=== PATIENT | male | born 1930 | race Caucasian/White ===

== ENCOUNTER 2019-01-05 07:05 | Inpatient (IN) ==
[2019-01-05 08:01] LABS: Basophils % 0.4 % (0.0-0.8); Eosinophils # 0.3 10*3/uL (0.0-0.87); Eosinophils % 4.4 % (0.00-10.9); Hemoglobin 11.1 GM/DL (14.0-18.0); Immature Granulocytes % 0.6 %; Immature Granulocytes Absolute 0.04 #; Lymphocytes # 1.1 10*3/uL (1.4-4.0); Lymphocytes % 16.2 % (21.2-54.2); Mean Corpuscular HGB Conc 31.7 GM/DL (32-36); Mean Corpuscular Volume 94.1 FL (87-102); Mean Platelet Volume 10.1 FL (9.6-12.0); Monocytes % 10.1 % (1.7-12.7); Neutrophils % 68.3 % (38.7-73.9); Platelet Count 203 T/CUMM (130-400); Red Blood Count 3.72 MC/CUMM (3.8-5.5); Red Cell Distribution Width 13.3 % (9.3-17.3); White Blood Count 6.9 T/CUMM (4-12)
[2019-01-05 08:39] LABS: Albumin 3.3 G/DL (3.4-5.0); Bilirubin,Total 0.9 MG/DL (0.2-1.0); Calcium 8.6 MG/DL (8.5-10.1); Osmolality,Calculated 275.7 MOS/KG (273-304); Thyroid Stimulating Hormone 6.84 uIU/ml (0.358-3.74); Total Protein 7.2 G/DL (6.4-8.3)
[2019-01-05] MEDS ORDERED: cefTRIAXone 1,000 MG in SODIUM CHLORIDE 0.9% 100 ML IV STA (10:01)
[2019-01-05] MEDS ORDERED: FUROSEMIDE 40 MG/4 ML VIAL IV STA (10:02)
[2019-01-05] MEDS ORDERED: ONDANSETRON 4 MG/2 ML VIAL ONE (10:39)
[2019-01-05] MEDS ORDERED: ONDANSETRON 4 MG/2 ML VIAL IV STA (10:43)
[2019-01-05] MEDS ORDERED: ONDANSETRON 4 MG/2 ML VIAL IV PRN (10:46)
[2019-01-05 10:54] LABS: Apearance,Urine CLEAR (Clear); Bacteria,Urine Occasional /HPF (Few); Bilirubin,Urine Negative (Negative); Blood, Urine Small mg/dL (Negative); Glucose,Urine (UA) Negative (Negative); Ketones,Urine Negative (Negative); Mucus,Urine Occasional /LPF (Occasional); Nitrite,Urine Negative (Negative); Protein,Urine Negative; RBC,Urine 11 /HPF (0-4); Squamous Epithelial Cell,Urine Occasional /HPF (0-10); Urine Color Yellow (Yellow); Urine Specific Gravity 1.011 (1.001-1.035); Urine Urobilinogen < 2.0 EU/DL (0.2-1.0); WBC,Urine 1 /HPF (0-6)
[2019-01-05 11:24] LABS: Free T4 (Free Thyroxine) 0.84 NG/DL (0.76-1.46)
[2019-01-05 11:31] LABS: Risk Ratio 2.68; VLDL CHOLESTEROL 17.6 MG/DL
[2019-01-05] MEDS ORDERED: CLOPIDOGREL 75 MG TABLET PO SCH (21:00)
[2019-01-05] MEDS: METOPROLOL TARTRATE 50 MG TABLET PO SCH (21:11)
[2019-01-05] MEDS: DOXYCYCLINE HYCLATE 100 MG CAPSULE PO SCH (21:11)
[2019-01-05] MEDS: SIMVASTATIN 40 MG TABLET PO SCH (21:11)
[2019-01-06 05:39] LABS: Basophils % 0.3 % (0.0-0.8); Eosinophils # 0.4 10*3/uL (0.0-0.87); Eosinophils % 5.2 % (0.00-10.9); Hemoglobin 12.4 GM/DL (14.0-18.0); Immature Granulocytes % 0.6 %; Immature Granulocytes Absolute 0.04 #; Lymphocytes % 15.3 % (21.2-54.2); Mean Corpuscular HGB Conc 31.8 GM/DL (32-36); Mean Platelet Volume 10.2 FL (9.6-12.0); Monocytes % 12.4 % (1.7-12.7); Neutrophils % 66.2 % (38.7-73.9); Platelet Count 203 T/CUMM (130-400); Red Blood Count 4.15 MC/CUMM (3.8-5.5); Red Cell Distribution Width 13.1 % (9.3-17.3); White Blood Count 6.8 T/CUMM (4-12)
[2019-01-06 05:57] LABS: Calcium 9.1 MG/DL (8.5-10.1); Osmolality,Calculated 273.8 MOS/KG (273-304)
[2019-01-06] MEDS ORDERED: LEVOTHYROXINE 50 MCG TABLET PO SCH (06:30)
[2019-01-06] MEDS ORDERED: lisinopriL 20 MG TABLET PO SCH (09:00)
[2019-01-06] MEDS: ASPIRIN EC 81 MG TABLET PO SCH (09:22)
[2019-01-06] MEDS: MEMANTINE 10 MG TABLET PO SCH (09:22)
[2019-01-06] MEDS: RIVAROXABAN 15 MG TABLET PO SCH (09:22)
[2019-01-06] MEDS: LEVOTHYROXINE 75 MCG TABLET PO SCH (09:22)
[2019-01-06] MEDS: PANTOPRAZOLE 40 MG TABLET PO SCH (09:22)
[2019-01-06] MEDS: CYANOCOBALAMIN 500 MCG TABLET PO SCH (09:22)
[2019-01-06] MEDS: METOPROLOL TARTRATE 50 MG TABLET PO SCH ×2 (09:22→20:58)
[2019-01-06] MEDS: DOXYCYCLINE HYCLATE 100 MG CAPSULE PO SCH ×2 (13:58→20:57)
[2019-01-06] MEDS: SIMVASTATIN 40 MG TABLET PO SCH (20:58)
[2019-01-06] MEDS: DOCUSATE SODIUM 100 MG CAPSULE PO PRN (22:12)
[2019-01-06] MEDS: ACETAMINOPHEN 325 MG TABLET PO PRN (22:12)
[2019-01-07 03:09] LABS: Basophils % 0.5 % (0.0-0.8); Eosinophils # 0.4 10*3/uL (0.0-0.87); Eosinophils % 7.3 % (0.00-10.9); Hematocrit 37.5 VOL% (42.0-52.0); Hemoglobin 11.9 GM/DL (14.0-18.0); Immature Granulocytes % 0.4 %; Immature Granulocytes Absolute 0.02 #; Lymphocytes # 1.2 10*3/uL (1.4-4.0); Lymphocytes % 22.7 % (21.2-54.2); Mean Corpuscular HGB Conc 31.7 GM/DL (32-36); Mean Corpuscular Volume 93.1 FL (87-102); Mean Platelet Volume 10.6 FL (9.6-12.0); Monocytes % 14.8 % (1.7-12.7); Neutrophils % 54.3 % (38.7-73.9); Platelet Count 217 T/CUMM (130-400); Red Blood Count 4.03 MC/CUMM (3.8-5.5); Red Cell Distribution Width 12.9 % (9.3-17.3); White Blood Count 5.5 T/CUMM (4-12)
[2019-01-07 03:34] LABS: Calcium 8.3 MG/DL (8.5-10.1); Osmolality,Calculated 278.8 MOS/KG (273-304)
[2019-01-07] MEDS: LEVOTHYROXINE 75 MCG TABLET PO SCH (06:43)
[2019-01-07] MEDS ORDERED: SODIUM CHLORIDE 0.45% 500 ML IV ONE (07:51)
[2019-01-07] MEDS: RIVAROXABAN 15 MG TABLET PO SCH (08:28)
[2019-01-07] MEDS: DOXYCYCLINE HYCLATE 100 MG CAPSULE PO SCH ×2 (08:28→21:48)
[2019-01-07] MEDS: MEMANTINE 10 MG TABLET PO SCH (08:28)
[2019-01-07] MEDS: CYANOCOBALAMIN 500 MCG TABLET PO SCH (08:28)
[2019-01-07] MEDS: PANTOPRAZOLE 40 MG TABLET PO SCH (08:28)
[2019-01-07] MEDS: ASPIRIN EC 81 MG TABLET PO SCH (08:28)
[2019-01-07] MEDS: METOPROLOL TARTRATE 50 MG TABLET PO SCH ×2 (08:28→22:22)
[2019-01-07] MEDS: lisinopriL 5 MG TABLET PO SCH (08:32)
[2019-01-07] MEDS: DOCUSATE SODIUM 100 MG CAPSULE PO PRN (21:49)
[2019-01-07] MEDS: ACETAMINOPHEN 325 MG TABLET PO PRN (21:49)
[2019-01-07] MEDS: SIMVASTATIN 40 MG TABLET PO SCH (21:50)
[2019-01-08 05:03] LABS: Basophils % 0.2 % (0.0-0.8); Eosinophils # 0.4 10*3/uL (0.0-0.87); Eosinophils % 8.2 % (0.00-10.9); Hemoglobin 11.5 GM/DL (14.0-18.0); Immature Granulocytes % 0.8 %; Immature Granulocytes Absolute 0.04 #; Lymphocytes # 1.5 10*3/uL (1.4-4.0); Lymphocytes % 30.1 % (21.2-54.2); Mean Corpuscular HGB Conc 31.9 GM/DL (32-36); Mean Platelet Volume 10.7 FL (9.6-12.0); Monocytes % 12.9 % (1.7-12.7); Neutrophils % 47.8 % (38.7-73.9); Platelet Count 219 T/CUMM (130-400); Red Blood Count 3.83 MC/CUMM (3.8-5.5); Red Cell Distribution Width 12.9 % (9.3-17.3); White Blood Count 4.9 T/CUMM (4-12)
[2019-01-08 05:10] LABS: Calcium 8.1 MG/DL (8.5-10.1); Osmolality,Calculated 284.5 MOS/KG (273-304)
[2019-01-08] MEDS: LEVOTHYROXINE 75 MCG TABLET PO SCH (06:27)
[2019-01-08] MEDS: METOPROLOL TARTRATE 25 MG TABLET PO SCH ×2 (09:59→20:48)
[2019-01-08] MEDS: lisinopriL 5 MG TABLET PO SCH (09:59)
[2019-01-08] MEDS: DOXYCYCLINE HYCLATE 100 MG CAPSULE PO SCH ×2 (09:59→20:48)
[2019-01-08] MEDS: ASPIRIN EC 81 MG TABLET PO SCH (09:59)
[2019-01-08] MEDS: RIVAROXABAN 15 MG TABLET PO SCH (09:59)
[2019-01-08] MEDS: MEMANTINE 10 MG TABLET PO SCH (09:59)
[2019-01-08] MEDS: PANTOPRAZOLE 40 MG TABLET PO SCH (09:59)
[2019-01-08] MEDS: CYANOCOBALAMIN 500 MCG TABLET PO SCH (09:59)
[2019-01-08] MEDS: SIMVASTATIN 40 MG TABLET PO SCH (20:48)
[2019-01-08] MEDS: ZALEPLON 5 MG CAPSULE PO PRN (20:49)
[2019-01-09 06:09] LABS: Calcium 8.8 MG/DL (8.5-10.1); Osmolality,Calculated 285.3 MOS/KG (273-304)
[2019-01-09] MEDS: LEVOTHYROXINE 75 MCG TABLET PO SCH (07:40)
[2019-01-09] MEDS ORDERED: TUBERCULIN SKIN TEST 0.1 ML SYRINGE INTRADERM ONE (08:15)
[2019-01-09] MEDS: CYANOCOBALAMIN 500 MCG TABLET PO SCH (10:28)
[2019-01-09] MEDS: MEMANTINE 10 MG TABLET PO SCH (10:28)
[2019-01-09] MEDS: ASPIRIN EC 81 MG TABLET PO SCH (10:28)
[2019-01-09] MEDS: DOXYCYCLINE HYCLATE 100 MG CAPSULE PO SCH ×2 (10:28→21:16)
[2019-01-09] MEDS: lisinopriL 5 MG TABLET PO SCH (10:28)
[2019-01-09] MEDS: PANTOPRAZOLE 40 MG TABLET PO SCH (10:29)
[2019-01-09] MEDS: METOPROLOL TARTRATE 25 MG TABLET PO SCH ×2 (10:29→21:16)
[2019-01-09] MEDS: RIVAROXABAN 15 MG TABLET PO SCH (10:29)
[2019-01-09] MEDS ORDERED: HALOPERIDOL 5 MG/ML AMP IM PRN (12:20)
[2019-01-09] MEDS: ZALEPLON 5 MG CAPSULE PO PRN (19:05)
[2019-01-09] MEDS: SIMVASTATIN 40 MG TABLET PO SCH (21:16)
[2019-01-10] MEDS: DOCUSATE SODIUM 100 MG CAPSULE PO PRN (08:39)
[2019-01-10] MEDS: PANTOPRAZOLE 40 MG TABLET PO SCH (08:39)
[2019-01-10] MEDS: METOPROLOL TARTRATE 25 MG TABLET PO SCH (08:39)
[2019-01-10] MEDS: ASPIRIN EC 81 MG TABLET PO SCH (08:39)
[2019-01-10] MEDS: lisinopriL 5 MG TABLET PO SCH (08:39)
[2019-01-10] MEDS: MEMANTINE 10 MG TABLET PO SCH (08:39)
[2019-01-10] MEDS: DOXYCYCLINE HYCLATE 100 MG CAPSULE PO SCH (08:39)
[2019-01-10] MEDS: CYANOCOBALAMIN 500 MCG TABLET PO SCH (08:39)
[2019-01-10] MEDS: RIVAROXABAN 15 MG TABLET PO SCH (08:39)
[2019-01-10] MEDS: LEVOTHYROXINE 75 MCG TABLET PO SCH (08:39)
[2019-01-10 11:51] VITALS: BP 112/74
== END 2019-01-10 11:55 | disposition swing bed (61) | DRG 884 ==
LOC: EDBD → N.EDINP 07:05 → N.ED 07:05 → SUATTDRO 10:46 → N.TELEN 11:02 → N.4E 01-06 13:22
PROVIDERS: ADMIT Internal Medicine; ATTEND Internal Medicine